=== PATIENT | male | born 1995 | race Caucasian/White ===

== ENCOUNTER 2017-05-14 18:06 | Emergency (ER) | payer BC ==
[~2017-05-14] VITALS: Ht 167.6 cm; Wt 68.2 kg
[~2017-05-14 18:06] MED LIST: LEXAPRO 5MG5 MG PO; MIRALAX119G PO; MOTRIN 200200 MG/TAB PO; PREVACID24HROTC PO; SUDAFED 12 HOU120 MG PO; ZYRTEC5 MG PO
[2017-05-14 18:09] VITALS: BP 115/75; TEMP 100.5
[2017-05-14] MEDS ORDERED: ZOLOFT 25MG25 MG PO (18:13)
[2017-05-14] MEDS ORDERED: PREDNISONE20 MG PO (22:19)
[2017-05-14 22:24] VITALS: PULSE 122
== END 2017-05-14 22:28 | disposition home or self-care (01) ==
LOC: COL.ER 18:06
DX: J45.901 Unspecified asthma with (acute) exacerbation (principal); J06.9 Acute upper respiratory infection, unspecified; F41.9 Anxiety disorder, unspecified; F32.9 Major depressive disorder, single episode, unspecified; K59.00 Constipation, unspecified
CPT/HCPCS: J7512

== ENCOUNTER 2018-01-28 11:56 | Emergency (ER) | payer BC ==
[~2018-01-28] VITALS: Ht 167.6 cm; Wt 63.6 kg
[~2018-01-28 11:56] MED LIST changes: +PREDNISONE20 MG PO; +ZOLOFT 25MG25 MG PO
[2018-01-28 11:59] VITALS: BP 123/75; TEMP 98.4
[2018-01-28] MEDS ORDERED: PROAIR HFA0.09 MG/AC IH (12:19)
[2018-01-28 12:53] VITALS: PULSE 98
== END 2018-01-28 12:53 | disposition home or self-care (01) ==
LOC: COL.ER 11:56
DX: J06.9 Acute upper respiratory infection, unspecified (principal); F41.9 Anxiety disorder, unspecified; G43.909 Migraine, unspecified, not intractable, without status migrainosus; G40.909 Epilepsy, unspecified, not intractable, without status epilepticus